=== PATIENT | female | born 1970 | race Caucasian/White ===

== ENCOUNTER → 2016-05-23 | Day surgery (SDC) | payer OTHER ==
[~2016-05-23] VITALS: Ht 152.4 cm; Wt 96.6 kg
[~2016-05-23] MED LIST: BENA25CA2 PO; HYDROmorphone HCL 1 MG/ML SYRINGE (J1170) IV PRN; KETOROLAC 60 MG/2 ML VIAL (J1885) As Ordered ONE; LIDOCAINE 2% INJ 100 MG/5 ML SDV (FOR ANES.) As Ordered ONE; LR 1,000 ML IV SCH; MELA5TAB14 PO; MIDAZOLAM INJ 2 MG/2 ML VIAL (J2250) As Ordered ONE; MULT1TAB10 PO; NAPR500T2 PO; ONDANSETRON 4MG/2ML VIAL (J2405) As Ordered ONE; ONDANSETRON 4MG/2ML VIAL (J2405) IV PRN; PERC10TA17 PO; PERCOCET 5MG/325MG TAB PO PRN; PROPOFOL 200 MG/20 ML VIAL As Ordered ONE; SILVER NITRATE APPLICATOR As Ordered ONE; fentaNYL 100 MCG/2 ML INJECTION (J3010) As Ordered ONE; fentaNYL 100 MCG/2 ML INJECTION (J3010) IV PRN
[2016-05-23 07:39] LABS: ANION GAP 8 MEQ/L (8-16); BLOOD UREA NITROGEN 13 MG/DL (7-18); CARBON DIOXIDE LEVEL 28 MEQ/L (21-32); CHLORIDE LEVEL 106 MEQ/L (98-107); CREATININE FOR GFR 0.86 MG/DL (0.55-1.02); GLOMERULAR FILTRATION RATE > 60.0 (>58); GLUCOSE, FASTING 94 MG/DL (70-105); POTASSIUM SERUM 4.1 MEQ/L (3.5-5.1); SODIUM LEVEL 142 MEQ/L (136-145)
--- NOTE | 2016-05-23 10:05 | RO ---
DATE OF OPERATION: 05/23/2016 INDICATION FOR OPERATION: Basia is a 46-year-old female with a history of a prior endometrial ablation approximately 1 year ago. Prior to her ablation, she had a normal endometrial biopsy, and the indication for the ablation was abnormal uterine bleeding/heavy menstrual bleeding. She went to the emergency room (ER) for abdominal pain and had a CT scan, which showed an incidental finding of a thickened endometrium. An endometrial biopsy was attempted in clinic, but only lower uterine segment tissue was obtained, no endometrial tissue, for diagnosis, so she was counseled and consented for diagnostic hysteroscopy with a dilation and curettage (D and C) to obtain better tissue to send to pathology for a diagnosis. PREOPERATIVE DIAGNOSES: 1. Thickened endometrial lining s/p prior endometrial ablation. POSTOPERATIVE DIAGNOSES: 1. Thickened endometrial lining s/p prior endometrial ablation. MATERIAL FORWARDED TO THE LABORATORY FOR EXAMINATION: Endometrial curettings. STAFF SURGEON: Lissett Fitch MD BENEFITS ANALYST: Tyler Gonzalez MD CLINICAL SERVICE: Gynecology (SWITCH COUPLER). ANESTHESIA: General, LMA DESCRIPTION AND FINDINGS: Closed, stenotic cervical os. Hysteroscopy showed normal postablative uterine cavity with no obvious masses. INFECTION CLASSIFICATION: 2. ESTIMATED BLOOD LOSS: 10 mL. INTRAVENOUS (IV) FLUIDS: 800 mL of lactated Ringer. URINE OUTPUT: Not measured. OPERATION PERFORMED: Diagnostic hysteroscopy with dilation and curettage. DESCRIPTION OF OPERATION: After obtaining informed consent, Basia was taken to the operating room, where she underwent general anesthesia with laryngeal mask airway (LMA) anesthesia. She was placed in low lithotomy position, and the perineum and vagina were prepped and draped in sterile fashion. Speculum was inserted into the vagina, and the anterior segment of the cervix was grasped with a single-tooth tenaculum. The cervix was sequentially dilated using Hanks dilators. Hysteroscopic camera was introduced to the fundus, where no masses were identified. The uterine cavity looked consistent with normal postablative changes. Hysteroscopic camera was removed, and the uterus was curetted in 360 degrees with good cry noted. Tissue obtained will be sent to pathology. The tenaculum was removed, and silver nitrate used to obtain complete hemostasis at the tenaculum sites. The speculum was removed, and vaginal sweep revealed nothing retained in the vagina. The patient was transferred to the recovery room in good condition. All counts were correct times two. MTDD
[2016-05-23 10:40] VITALS: BP 136/69
== END | disposition home or self-care (01) ==
LOC: M SDC 06:47
PROVIDERS: ATTEND Obstetrics & Gynecology
DX: R93.8 Abnormal findings on diagnostic imaging of other specified body structures (principal); K58.9 Irritable bowel syndrome, unspecified; J30.2 Other seasonal allergic rhinitis; M17.0 Bilateral primary osteoarthritis of knee; E66.9 Obesity, unspecified; I83.93 Asymptomatic varicose veins of bilateral lower extremities; R10.9 Unspecified abdominal pain; G47.33 Obstructive sleep apnea (adult) (pediatric); M54.2 Cervicalgia; F32.9 Major depressive disorder, single episode, unspecified; F43.10 Post-traumatic stress disorder, unspecified; J32.9 Chronic sinusitis, unspecified; Z91.048 Other nonmedicinal substance allergy status; Z91.013 Allergy to seafood; Z88.2 Allergy status to sulfonamides; Z79.899 Other long term (current) drug therapy; Z98.51 Tubal ligation status
CPT/HCPCS: 36415; 58558; 80048; 85014; 85018; 86850; 86900; 86901; 88305; J1885; J2250; J2405; J3010

== ENCOUNTER → 2016-07-16 | Outpatient (CLI) | payer OTHER ==
[~2016-07-16] VITALS: Ht 152.4 cm; Wt 97.5 kg
[~2016-07-16] MED LIST changes: +BENA25CA4 PO; -HYDROmorphone HCL 1 MG/ML SYRINGE (J1170) IV PRN; -KETOROLAC 60 MG/2 ML VIAL (J1885) As Ordered ONE; -LR 1,000 ML IV SCH; -MIDAZOLAM INJ 2 MG/2 ML VIAL (J2250) As Ordered ONE; +NS 1,000 ML IV SCH; -ONDANSETRON 4MG/2ML VIAL (J2405) As Ordered ONE; -ONDANSETRON 4MG/2ML VIAL (J2405) IV PRN; -PERCOCET 5MG/325MG TAB PO PRN; -PROPOFOL 200 MG/20 ML VIAL As Ordered ONE; +PROPOFOL 500 MG/50 ML VIAL As Ordered ONE; -SILVER NITRATE APPLICATOR As Ordered ONE; -fentaNYL 100 MCG/2 ML INJECTION (J3010) As Ordered ONE; -fentaNYL 100 MCG/2 ML INJECTION (J3010) IV PRN
--- NOTE | 2016-07-16 12:39 | ROOR ---
Patient Name: Basia Yung Procedure Date: 07/16/2016 12:20 PM Date of : 1970 Age: 46 Room: [facility] Gender: Female Note Status: Finalized Procedure: Upper GI endoscopy Indications: Heartburn Providers: Mahad Wade MD Referring MD: JEANNETTE MACHADO MD Requesting Provider: Medicines: Monitored Anesthesia Care Complications: No immediate complications. Procedure: Pre-Anesthesia Assessment: - The heart rate, respiratory rate, oxygen saturations, blood pressure, adequacy of pulmonary ventilation, and response to care were monitored throughout the procedure. The Endoscope was introduced through the mouth, and advanced to the second part of duodenum. The upper GI endoscopy was accomplished without difficulty. The patient tolerated the procedure well. Findings: The Z-line was regular and was found 35 cm from the incisors. No other significant abnormalities were identified in a careful examination of the stomach. The exam of the duodenum was otherwise normal. Impression: - Z-line regular, 35 cm from the incisors. - No specimens collected. - The examination was otherwise normal. Recommendation: - Patient has a contact number available for emergencies. The signs and symptoms of potential delayed complications were discussed with the patient. Return to normal activities tomorrow. Written discharge instructions were provided to the patient. - High fiber diet. - Discharge patient to home. - Follow an antireflux regimen. - Continue present medications. - Return to referring physician. - The findings and recommendations were discussed with the patient's family. Mahad Wade MD Mahad Wade MD 07/16/2016 12:39:03 PM This report has been signed electronically. Number of Addenda: 0 Note Initiated On: 07/16/2016 12:20 PM Estimated Blood Loss: Estimated blood loss: none.
--- NOTE | 2016-07-16 12:53 | ROOR ---
Patient Name: Basia Yung Procedure Date: 07/16/2016 12:20 PM Date of : 1970 Age: 46 Room: [facility] Gender: Female Note Status: Finalized Procedure: Colonoscopy to Cecum + ileoscopy + biopsies Indications: Abdominal pain in the right lower quadrant, Clinically significant diarrhea of unexplained origin Providers: Mahad Wade MD Referring MD: JEANNETTE MACHADO MD Requesting Provider: Medicines: Monitored Anesthesia Care Complications: No immediate complications. Procedure: Pre-Anesthesia Assessment: - The heart rate, respiratory rate, oxygen saturations, blood pressure, adequacy of pulmonary ventilation, and response to care were monitored throughout the procedure. The Colonoscope was introduced through the anus and advanced to the cecum, identified by appendiceal orifice and ileocecal valve. The colonoscopy was performed without difficulty. The patient tolerated the procedure well. The quality of the bowel preparation was excellent. Findings: The perianal and digital rectal examinations were normal. Non-bleeding internal hemorrhoids were found during retroflexion. The hemorrhoids were small and Grade I (internal hemorrhoids that do not prolapse). No other significant abnormalities were identified in a careful examination of the remainder of the colon. Biopsies for histology were taken with a cold forceps from the ascending colon, transverse colon and descending colon for evaluation of microscopic colitis. The terminal ileum appeared normal. The exam was otherwise without abnormality. Impression: - Non-bleeding internal hemorrhoids. - The examined portion of the ileum was normal. - The examination was otherwise normal. - Biopsies were taken with a cold forceps from the ascending colon, transverse colon and descending colon for evaluation of microscopic colitis. - The exam was otherwise normal to the cecum. Recommendation: - Patient has a contact number available for emergencies. The signs and symptoms of potential delayed complications were discussed with the patient. Return to normal activities tomorrow. Written discharge instructions were provided to the patient. - High fiber diet. - Discharge patient to home. - Continue present medications. - Await pathology results. - Telephone GI clinic for pathology results in 1 week. - Repeat colonoscopy in 10 years for screening purposes. - Return to referring physician. - The findings and recommendations were discussed with the patient's family. Mahad Wade MD Mahad Wade MD 07/16/2016 12:53:25 PM This report has been signed electronically. Number of Addenda: 0 Note Initiated On: 07/16/2016 12:20 PM Estimated Blood Loss: Estimated blood loss: none.
[2016-07-16 13:20] VITALS: BP 147/97
== END | disposition home or self-care (01) ==
LOC: M OPP 11:27
PROVIDERS: ATTEND Internal Medicine Gastroenterology
DX: K64.0 First degree hemorrhoids (principal); R19.7 Diarrhea, unspecified; R12 Heartburn; K58.9 Irritable bowel syndrome, unspecified; M17.12 Unilateral primary osteoarthritis, left knee; G47.30 Sleep apnea, unspecified; Z79.899 Other long term (current) drug therapy; Z88.2 Allergy status to sulfonamides; Z91.013 Allergy to seafood; Z88.8 Allergy status to other drugs, medicaments and biological substances

== ENCOUNTER 2016-11-12 08:52 | Emergency (ER) | payer OTHER ==
[~2016-11-12] VITALS: Ht 152.4 cm; Wt 96.6 kg
[~2016-11-12 08:52] MED LIST changes: -LIDOCAINE 2% INJ 100 MG/5 ML SDV (FOR ANES.) As Ordered ONE; -MELA5TAB14 PO; +MELA5TAB17 PO; -NAPR500T2 PO; +NAPR500T3 PO; -NS 1,000 ML IV SCH; -PERC10TA17 PO; +PERC10TA26 PO; -PROPOFOL 500 MG/50 ML VIAL As Ordered ONE
[2016-11-12] MEDS ORDERED: HYDR-3363 PO (09:10)
[2016-11-12 09:51] LABS: MEAN CORPUSCULAR HEMOGLOBIN 31.9 pg (27.0-33.0); MEAN CORPUSCULAR HGB CONC 34.1 g/dl (32.0-36.5); MEAN CORPUSCULAR VOLUME 93.6 fl (80.0-96.0); RED CELL DISTRIBUTION WIDTH 12.9 % (11.5-14.5); WHITE BLOOD COUNT 9.5 K/mm3 (4.0-10.0)
[2016-11-12 10:05] LABS: CONTROL LINE HCG INT CTR LINE PRESENT
[2016-11-12 10:11] LABS: METHADONE URINE NEGATIVE (NEGATIVE)
[2016-11-12 10:20] LABS: ALBUMIN 3.9 GM/DL (3.2-5.2); ALBUMIN/GLOBULIN RATIO 1.05 (1.00-1.93); ALKALINE PHOSPHATASE 94 U/L (45-117); ALT/SGPT 27 U/L (12-78); ANION GAP 7 MEQ/L (8-16); AST/SGOT 12 U/L (15-37); BILIRUBIN,DIRECT < 0.1 MG/DL (0.0-0.2); BILIRUBIN,TOTAL 0.3 MG/DL (0.2-1.0); BLOOD UREA NITROGEN 13 MG/DL (7-18); CALCIUM LEVEL 8.9 MG/DL (8.5-10.1); CARBON DIOXIDE LEVEL 25 MEQ/L (21-32); CHLORIDE LEVEL 109 MEQ/L (98-107); CREATININE FOR GFR 0.83 MG/DL (0.55-1.02); GLOMERULAR FILTRATION RATE > 60.0 (>58); GLUCOSE, FASTING 117 MG/DL (70-105); POTASSIUM SERUM 4.1 MEQ/L (3.5-5.1); SODIUM LEVEL 141 MEQ/L (136-145); TOTAL PROTEIN 7.6 GM/DL (6.4-8.2)
[2016-11-12 11:26] VITALS: BP 145/89
[2016-12-19] MEDS ORDERED: MULT1TAB10 PO (16:49)
[2016-12-19] MEDS ORDERED: BENA25CA4 PO (16:49)
[2016-12-19] MEDS ORDERED: VITA100072 PO (16:49)
[2016-12-19] MEDS ORDERED: CLAR10CA3 PO (16:49)
[2016-12-19] MEDS ORDERED: MELA10TA3 PO (16:49)
[2016-12-19] MEDS ORDERED: GINK60CA3 PO (16:49)
[2016-12-19] MEDS ORDERED: CITA20TA4 PO (16:49)
== END 2016-11-12 11:21 | disposition home or self-care (01) ==
LOC: M ED 09:53
DX: F43.0 Acute stress reaction (principal); Z79.899 Other long term (current) drug therapy; Z91.013 Allergy to seafood; Z88.2 Allergy status to sulfonamides; Z88.1 Allergy status to other antibiotic agents; Z88.8 Allergy status to other drugs, medicaments and biological substances
CPT/HCPCS: 36415; 80048; 80076; 80306; 84443; 84703; 85027; 99284; G0480

== ENCOUNTER 2016-12-26 05:48 | Inpatient (IN) | payer OTHER ==
[~2016-12-26] VITALS: Ht 152.4 cm; Wt 95.0 kg
[2016-12-26] VITALS (7 sets, daily range): BP systolic 128–171; BP diastolic 67–82
[~2016-12-26 05:48] MED LIST changes: +CITA20TA4 PO; +CLAR10CA3 PO; +GINK60CA3 PO; +HYDR-3363 PO; +MELA10TA3 PO; +VITA100072 PO
[2016-12-26] MEDS ORDERED: LR 1,000 ML IV ONE (06:00)
[2016-12-26] MEDS ORDERED: cefoTEtan DISODIUM 2 GM in D5W MINI-BAG PLUS 100 ML IV ONE (06:00)
[2016-12-26 06:42] LABS: MEAN CORPUSCULAR HEMOGLOBIN 30.9 pg (27.0-33.0); MEAN CORPUSCULAR HGB CONC 33.8 g/dl (32.0-36.5); MEAN CORPUSCULAR VOLUME 91.3 fl (80.0-96.0); RED CELL DISTRIBUTION WIDTH 13.1 % (11.5-14.5); WHITE BLOOD COUNT 8.6 K/mm3 (4.0-10.0)
[2016-12-26 06:55] LABS: CONTROL LINE HCG INT CTR LINE PRESENT
[2016-12-26] MEDS ORDERED: BUPIVACAINE HCL 0.5% 30 ML VIAL As Ordered ONE (07:15)
[2016-12-26] MEDS ORDERED: PROPOFOL 200 MG/20 ML VIAL As Ordered ONE ×2 (07:16→12:04)
[2016-12-26] MEDS ORDERED: ONDANSETRON 4MG/2ML VIAL (J2405) As Ordered ONE (07:16)
[2016-12-26] MEDS ORDERED: fentaNYL 250 MCG/5 ML INJECTION (J3010) As Ordered ONE (07:16)
[2016-12-26] MEDS ORDERED: dexameTHASONE 4 MG/ML 1ML VIAL (J1100) As Ordered ONE (07:16)
[2016-12-26] MEDS ORDERED: ROCURONIUM BROMIDE 50 MG/5 ML VIAL/SYRINGE As Ordered ONE ×2 (07:16→09:14)
[2016-12-26] MEDS ORDERED: LIDOCAINE 2% INJ 100 MG/5 ML SDV (FOR ANES.) As Ordered ONE (07:16)
[2016-12-26] MEDS ORDERED: MIDAZOLAM INJ 2 MG/2 ML VIAL (J2250) As Ordered ONE (07:17)
[2016-12-26] MEDS ORDERED: ePHEDrine SULFATE 25 MG/5 ML(5MG/ML) SYRINGE As Ordered ONE (09:07)
[2016-12-26] MEDS ORDERED: PHENYLephrine HCL 500 MCG/5 ML (100MCG/ML) SYRINGE (J2370) As Ordered ONE (09:07)
[2016-12-26] MEDS ORDERED: GLYCOPYRROLATE INJ 0.2 MG/ML 2 ML VIAL As Ordered ONE (09:23)
[2016-12-26] MEDS ORDERED: NEOSTIGMINE 1MG/ML 5 ML SYRINGE (J2710) As Ordered ONE (09:23)
[2016-12-26] MEDS ORDERED: HYDROmorphone HCL 2 MG/ML 1ML VIAL (J1170) As Ordered ONE (09:23)
[2016-12-26] MEDS ORDERED: KETOROLAC 60 MG/2 ML VIAL (J1885) As Ordered ONE (09:23)
[2016-12-26] MEDS ORDERED: SEVOFLURANE INHAL SOLN 250 ML BTL As Ordered ONE (10:10)
[2016-12-26] MEDS ORDERED: LABETALOL HCL 100 MG/20 ML VIAL As Ordered ONE (10:54)
[2016-12-26] MEDS ORDERED: ISOVUE-300 61% 50ML VIAL (Q9967) As Ordered ONE (11:15)
[2016-12-26] MEDS ORDERED: METHYLENE BLUE 0.5% (5MG/ML) 10 ML AMP (PROVAYBLUE)(Q9968 PER 1MG) As Ordered ONE (11:19)
[2016-12-26] MEDS ORDERED: BUPIVACAINE LIPOSOME/PF 1.3% 20 ML VIAL (13.3MG/ML)(EXPAREL) As Ordered ONE (11:57)
[2016-12-26] MEDS ORDERED: ceFAZolin 1GM INJ (J0690) As Ordered ONE (12:15)
[2016-12-26] MEDS ORDERED: NS 1,000 ML IV SCH ×2 (12:59→13:36)
[2016-12-26] MEDS ORDERED: diphenhydrAMINE 25 MG CAP PO PRN (13:00)
[2016-12-26] MEDS ORDERED: diphenhydrAMINE INJ 50MG/ML VIAL (J1200) IV PRN (13:00)
[2016-12-26] MEDS ORDERED: ONDANSETRON 4MG/2ML VIAL (J2405) IV PRN ×2 (13:00→14:15)
[2016-12-26] MEDS ORDERED: EPIDURAL/PCA KEYS XX PRN (13:00)
[2016-12-26] MEDS ORDERED: NALBUPHINE HCL 10 MG/ML AMP (J2300) IV PRN (13:00)
[2016-12-26] MEDS ORDERED: NALOXONE INJ 0.4 MG/1 ML VIAL (J2310) IV PRN (13:00)
[2016-12-26] MEDS ORDERED: MORPHINE 1MG/ML IN 0.9% NACL 100ML IV BAG IV PRN ×2 (13:00→13:45)
[2016-12-26] MEDS ORDERED: CitaloPRAM (CeleXA) 20 MG TAB PO ONE (13:00)
[2016-12-26 13:38] LABS: INR 1.04
[2016-12-26] MEDS ORDERED: LR 1,000 ML IV SCH (14:15)
[2016-12-26] MEDS ORDERED: fentaNYL 100 MCG/2 ML INJECTION (J3010) IV PRN (14:15)
[2016-12-26] MEDS ORDERED: PERCOCET 5MG/325MG TAB PO PRN (14:15)
[2016-12-26] MEDS ORDERED: HYDROmorphone HCL 1 MG/ML SYRINGE (J1170) IV PRN (14:15)
[2016-12-26] MEDS: KETOROLAC 30 MG/ML VIAL (J1885) IV SCH ×2 (15:00→20:15)
[2016-12-26] MEDS ORDERED: hydrOXYzine 10 MG TAB PO PRN (15:45)
[2016-12-26 18:24] LABS: MEAN CORPUSCULAR HEMOGLOBIN 31.7 pg (27.0-33.0); MEAN CORPUSCULAR HGB CONC 33.8 g/dl (32.0-36.5); MEAN CORPUSCULAR VOLUME 93.7 fl (80.0-96.0); RED CELL DISTRIBUTION WIDTH 12.9 % (11.5-14.5); WHITE BLOOD COUNT 16.1 K/mm3 (4.0-10.0)
[2016-12-26] MEDS: CitaloPRAM (CeleXA) 20 MG TAB PO SCH (20:16)
[2016-12-26] MEDS: DOCUSATE SODIUM 100 MG CAP PO SCH (20:16)
[2016-12-26] MEDS: LR 1,000 ML IV SCH (20:16)
[2016-12-27] VITALS: BP 111/60
[2016-12-27] MEDS: KETOROLAC 30 MG/ML VIAL (J1885) IV SCH ×4 (03:33→21:41)
[2016-12-27 04:00] VITALS: BP 141/66
[2016-12-27 07:05] LABS: MEAN CORPUSCULAR HEMOGLOBIN 31.2 pg (27.0-33.0); MEAN CORPUSCULAR HGB CONC 33.4 g/dl (32.0-36.5); MEAN CORPUSCULAR VOLUME 93.5 fl (80.0-96.0); RED CELL DISTRIBUTION WIDTH 13.3 % (11.5-14.5); WHITE BLOOD COUNT 9.5 K/mm3 (4.0-10.0)
[2016-12-27 08:00] VITALS: BP 122/58
[2016-12-27] MEDS: LR 1,000 ML IV SCH (08:49)
[2016-12-27] MEDS: DOCUSATE SODIUM 100 MG CAP PO SCH ×2 (08:50→21:41)
[2016-12-27] MEDS ORDERED: ONDANSETRON 4 MG TAB (S0181) PO PRN (10:15)
[2016-12-27] MEDS ORDERED: PERCOCET 5MG/325MG TAB PO PRN ×2 (10:15)
[2016-12-27] MEDS ORDERED: IBUPROFEN 800 MG TAB PO SCH ×2 (10:45→14:00)
[2016-12-27 12:00] VITALS: BP 116/59
[2016-12-27 16:00] VITALS: BP 108/71
--- NOTE | 2016-12-27 16:33 | RO ---
DATE OF PROCEDURE: 12/26/2016 PREPROCEDURE DIAGNOSIS: Abnormal uterine bleeding. POSTPROCEDURE DIAGNOSES: Pelvic adhesive disease. Abnormal uterine bleeding. OPERATIVE PROCEDURE: 1) Operative laparoscopy, 2) Lysis of Adhesions, 3) Total abdominal hysterectomy, 4) Bilateral salpingectomy, 5) Cystoscopy SURGEON: Live Abraham MD ARCH CUSHION SKIVING MACHINE OPERATOR: Irene Simms MD ANESTHESIA: General, Dr. Huston. IV FLUIDS: 4000 mL URINE OUTPUT: 1000 mL ESTIMATED BLOOD LOSS: 750 mL INDICATION FOR SURGERY: The patient is a 46-year-old G2, P2 with long history of abnormal uterine bleeding with previous endometrial ablation who still desires definitive surgical management. The risks, benefits, alternatives and indications were reviewed with the patient and informed consent was obtained. DESCRIPTION OF PROCEDURE: The patient was taken to the operating room where general anesthesia was obtained without difficulty. She was then prepped and draped in a normal sterile fashion. In dorsal supine position, with Micah stirrups being utilized an exam under anesthesia demonstrated an 8 week size uterus of minimal descent noted. IV antibiotics were given per protocol in routine fashion. A sterile speculum was placed in the patient's vagina and the cervix was visualized. A #0 Vicryl stitch was used through the cervix for control of the cervix while a VCare medium device was placed per manufacturers guidelines. The speculum was then removed and a Portillo catheter was then placed in routine fashion. Attention was then turned to the patient's abdomen where a 5 mm infraumbilical center incision was made. A 5 mm trocar and sleeve were carefully introduced into the abdomen under direct visualization at 90 degrees angle while tenting up the intraabdominal wall, intraperitoneal placement was confirmed and gas tubing was attached. Pressure at time of entrance was noted to be less than 5 mmHg. After appropriate and intraperitoneal placement was verified, gas was then obtained with a maximum pressure of 15 mmHg. The camera was then placed under direct visualization and a 360 degrees evaluation of the pelvis was done with no notable injury at the entry site as well as normal appearing liver edge, extensive adhesive disease to include the omentum was attached to the anterior abdominal wall significantly limiting visibility into the pelvis, however, was able to carefully place a left lower quadrant trocar in routine fashion with a 5 mm left lower quadrant trocar as well as a right lower quadrant trochar in routine fashion. Using a LigaSure device was able to take down a great majority of the omental adhesions noted without any intestinal involvement. However, pelvic adhesive disease also noted along the ovary to the pelvic sidewall on the right as well as the remnants of the fallopian tube to the ovaries, to the sidewall and posterior aspect of the uterus to the rectum and some obliteration of the posterior cul-de-sac. Oozing was noted along all the surgical edges and noted where the omentum was taken down as well as the adhesion of the right ovary to the pelvic sidewall as well as bleeding into the trocar at this time due to the time spent of approximately 40 minutes of trying to take down the omentum as well as bleeding and limitation from site, decision was made for an open hysterectomy via laparotomy. At this point, all gas was removed. The trocars removed without incident. The Pfannenstiel skin incision was then made through the previous two sections Pfannenstiel incisions and carried down to the underlying layer of fascia using electrocautery. The fascia was then entered with Bovie cautery and extended bilaterally. The underlying fascia and rectus muscle was dissected off carefully with use of Allis clamps, Kochers as well as Bovie cautery. This was continued on the lower aspect of the fascial incision. Careful entry into the abdomen was performed with use of Bovie cautery, digital palpation as well as Isa clamps. Protection of both the bladder as well as the intestines were maximized at all times with continued reevaluation. Once open, the peritoneal incision was then opened and extended superiorly and inferiorly and was notable for a small approximately 8 week size uterus as previously mentioned. The bowel was then packed from the operating field using moist laps. An O'Sy-O' Lopez self-retaining retractor was placed in the abdominal cavity and opened for pelvic exposure. Two large Eleni clamps were placed across the triple pedicles on each side and elevated the uterus to the level of the incision. The round ligaments were then grasped with Sugey clamp and an #0 Vicryl suture was used on the broad ligament for grasping. The broad ligament was then opened and transected electrocauterally into the broad ligament anterior and posterior. It was then incised along the bladder reflection as well as the posterior leaf of the broad ligament for approximately 2 cm, then the pararectal space was developed. The ureters were previously identified during laparoscopic evaluation of the pelvis. As the patient had undergone previous tubal ligation, there were remnants of fallopian tubes. At the fimbriated end these were crossed with the handheld LigaSure, clamped, cauterized and then removed and handed off. Using the assistance of a sponge stick as well as cautery and the Isa clamp, the bladder was gently dissected off the lower uterine segment, visualized in the endopelvic fascia. The uterine arteries were then skeletonized carefully in the same fashion and then clamped, crossed and electrocauterized using the handheld LigaSure device. Cardinal ligaments were also clamped, crossed and cauterized using the handheld LigaSure device. The uterosacrals were then clamped, crossed and electrocauterized using the handheld LigaSure noting hemostasis from the surgical site, however, throughout this case there oozing from all rough aspects of the surgical site to include the subcutaneous tissue along the edges of the fascia, the rectus muscle. No notable bleeding from a loose pedicle was identified at any time. Curved clamps were then placed across the vagina under the cervix and the uterus and cervix were amputated using Sunny scissors in a routine fashion. The anterior and posterior cuffs were then grasped with Deangelo clamps, carefully identified and closed with multiple [id number] sutures of #0 Vicryl. This included a total of eight. There was care given to incorporate the anterior pubocervical fascia and posterior rectovaginal fascia. The abdomen was then copiously irrigated with warm saline. All pedicles were noted to be hemostatic. Attention was then turned to the patient's vagina where the Portillo catheter was removed. After the cystoscope was primed and prepped, it was advanced through the urethra with a 360 degrees evaluation done of the bladder noticing intact bladder, bilateral efflux was noted. Urine was visualized from the ureteral orifices. Cystoscope was then removed and a bladder catheter was used to drain the bladder as well as to be replaced. After this, the abdomen was again irrigated with warm saline and noted to still be hemostatic. 5 grams of Meseret was placed along the rough edges of the surgical sites. All packing was removed with an appropriate lap count afterwards. The O'Sy-O'Lopez device was also removed in routine fashion. The fascia was then grasped and under visualization closed with a #0 Vicryl in a running fashion. The subcutaneous tissue was then reapproximated with #3-0 Vicryl in a running fashion in two layers. The skin was then closed with #4-0 Monocryl and a PS2. Steri-Strips were then applied along the laparotomy site. Trocar sites were then closed with #4-0 Monocryl and a PS2 and the trocar sites were then covered with Dermabond. The laparotomy site was covered with a pressure dressing. 0.50% Marcaine was mixed with 20 mL of Exparel and placed along the entirety of the laparotomy as well as the trocar sites. Manual exam demonstrated no retained objects. A second dose of Ancef was given due to the time of the operating procedure being longer than 3 hours. All sites were noted to be hemostatic. Lap, sponge and needle counts correct times three at the completion of the case. Tomy Abraham OB-EAR PULL MACHINE OPERATOR MTDD
[2016-12-27 20:00] VITALS: BP 121/68
[2016-12-27] MEDS: CitaloPRAM (CeleXA) 20 MG TAB PO SCH (21:42)
[2016-12-28] VITALS: BP 112/53
[2016-12-28] MEDS: KETOROLAC 30 MG/ML VIAL (J1885) IV SCH (03:49)
[2016-12-28 04:00] VITALS: BP 132/64
[2016-12-28] MEDS ORDERED: OXYC1TAB23 PO (08:30)
[2016-12-28] MEDS ORDERED: BENA25CA4 PO (08:30)
[2016-12-28] MEDS ORDERED: IBUP1TAB7 PO (08:30)
[2016-12-28] MEDS ORDERED: COLA100C5 PO (08:30)
[2016-12-28] MEDS ORDERED: ZOFR20TA PO (08:30)
[2016-12-28] MEDS ORDERED: HYDR-643 PO (09:57)
[2016-12-28] MEDS: DOCUSATE SODIUM 100 MG CAP PO SCH (10:50)
== END 2016-12-28 11:00 | disposition home or self-care (01) | DRG 743 ==
LOC: M OR 05:48 → M PED 14:39
PROVIDERS: ADMIT Student in an Organized Health Care Education/Training Program; ATTEND Student in an Organized Health Care Education/Training Program
PROC: 0UTC0ZZ Resection of Cervix, Open Approach (ICD-10-PCS; 2016-12-26)
PROC: 0DNT4ZZ (ICD-10-PCS; 2016-12-26)
PROC: 0DNS4ZZ (ICD-10-PCS; 2016-12-26)
PROC: 0UT70ZZ Resection of Bilateral Fallopian Tubes, Open Approach (ICD-10-PCS; 2016-12-26)
PROC: 0UT90ZZ Resection of Uterus, Open Approach (ICD-10-PCS; principal; 2016-12-26 07:30)
DX: N93.9 Abnormal uterine and vaginal bleeding, unspecified (principal); N73.6 Female pelvic peritoneal adhesions (postinfective)

== ENCOUNTER → 2018-03-18 | Outpatient (CLI) | payer OTHER | LOC: M RAD 15:13 | DX: D21.0 Benign neoplasm of connective and other soft tissue of head, face and neck (principal) | CPT/HCPCS: 70250 ==

== ENCOUNTER 2018-05-05 06:51 | Day surgery (SDC) | payer OTHER ==
[~2018-05-05 06:51] MED LIST changes: -BENA25CA2 PO; -BENA25CA4 PO; -CITA20TA4 PO; -CLAR10CA3 PO; -GINK60CA3 PO; -HYDR-3363 PO; +LIDOCAINE 2% INJ 100 MG/5 ML SDV (FOR ANES.) As Ordered; -MELA10TA3 PO; -MELA5TAB17 PO; +MIDAZOLAM INJ 2 MG/2 ML VIAL (J2250) As Ordered; -MULT1TAB10 PO; -NAPR500T3 PO; +ONDANSETRON 4MG/2ML VIAL (J2405) As Ordered; -PERC10TA26 PO; +PROPOFOL 200 MG/20 ML VIAL As Ordered; +ROCURONIUM BROMIDE 50 MG/5 ML VIAL As Ordered; -VITA100072 PO; +dexameTHASONE 4 MG/ML 1ML VIAL (J1100) As Ordered; +fentaNYL 100 MCG/2 ML INJECTION (J3010) As Ordered
[2018-05-05] MEDS: LR 1,000 ML IV (07:15)
[2018-05-05] MEDS: ceFAZolin SOD 1 GM in D5W MINI-BAG PLUS 50 ML IV (07:39)
[2018-05-05] MEDS ORDERED: SUGAMMADEX SODIUM 500 MG/5 ML VIAL (BRIDION) As Ordered (08:17)
[2018-05-05] MEDS ORDERED: KETOROLAC 60 MG/2 ML VIAL (J1885) As Ordered (08:24)
[2018-05-05] MEDS: LIDOCAINE 2% W/EPIN INJ 20ML **PRES FREE As Ordered (08:31)
[2018-05-05] MEDS: BACITRACIN OINT 30GM As Ordered (08:33)
[2018-05-05] MEDS: LIDOCAINE W/EPINEPHRINE 1% 20ML VIAL As Ordered (08:47)
[2018-05-05] MEDS ORDERED: LR 1,000 ML IV (09:00)
== END 2018-05-05 10:05 | disposition home or self-care (01) ==
LOC: M SDC 06:51
DX: M89.28 Other disorders of bone development and growth, other site (principal); E03.9 Hypothyroidism, unspecified; I86.8 Varicose veins of other specified sites; K58.9 Irritable bowel syndrome, unspecified; K21.9 Gastro-esophageal reflux disease without esophagitis; M17.12 Unilateral primary osteoarthritis, left knee; F41.9 Anxiety disorder, unspecified; F32.9 Major depressive disorder, single episode, unspecified; R51 Headache; F43.10 Post-traumatic stress disorder, unspecified; R06.83 Snoring; G47.33 Obstructive sleep apnea (adult) (pediatric); E66.9 Obesity, unspecified; Z68.43 Body mass index [BMI] 50.0-59.9, adult; Z88.2 Allergy status to sulfonamides; Z91.013 Allergy to seafood; Z91.048 Other nonmedicinal substance allergy status; Z79.899 Other long term (current) drug therapy; Z90.710 Acquired absence of both cervix and uterus; Z98.51 Tubal ligation status
CPT/HCPCS: 21026

== ENCOUNTER → 2021-08-16 | Outpatient (CLI) | payer OTHER ==
[~2021-08-16] MED LIST changes: +ACET-716 PO; +BENA25CA2 PO; +BENA25CA4 PO; +CETI10CH PO; +CITA20TA6 PO; +CLAR10CA3 PO; +COLA100C5 PO; +FLON1SPR; +GINK60CA3 PO; +HYDR-3363 PO; +HYDR-643 PO; +IBUP1TAB7 PO; +LEVO50TA5 PO; -LIDOCAINE 2% INJ 100 MG/5 ML SDV (FOR ANES.) As Ordered; +MELA10TA3 PO; +MELA5TAB21 PO; +MELA5TAB36 PO; -MIDAZOLAM INJ 2 MG/2 ML VIAL (J2250) As Ordered; +MULT1TAB10 PO; +NAPR-885 PO; -ONDANSETRON 4MG/2ML VIAL (J2405) As Ordered; +OXYC1TAB23 PO; +PERC10TA26 PO; -PROPOFOL 200 MG/20 ML VIAL As Ordered; -ROCURONIUM BROMIDE 50 MG/5 ML VIAL As Ordered; +SUPETAB25 PO; +VITA100018 PO; +VITA500046 PO; +ZOFR4TAB16 PO; -dexameTHASONE 4 MG/ML 1ML VIAL (J1100) As Ordered; -fentaNYL 100 MCG/2 ML INJECTION (J3010) As Ordered
== END ==
LOC: M WHC 16:10
PROVIDERS: ATTEND Nurse Practitioner Family
DX: Z12.31 Encounter for screening mammogram for malignant neoplasm of breast (principal); Z80.3 Family history of malignant neoplasm of breast